=== PATIENT | female | born 1995 | race African-American/Black ===

== ENCOUNTER 2017-01-28 20:52 | Emergency (ER) | payer BC ==
[~2017-01-28] VITALS: Ht 165.1 cm; Wt 59.0 kg
[~2017-01-28 20:52] MED LIST: ACETAMINOPHEN-1 EAC1 PO; FLEXERIL PO; HYDROCODONE-AP1 EAC6; IBUPROFEN 600600 M1 PO; IBUPROFEN 800800 M1 PO; NAPROSYN500 MG PO; TRAMADOL 50 MG50 MG
[2017-01-28 22:21] LABS: URINE BILIRUBIN NEGATIVE (Negative); URINE BLOOD NEGATIVE (Negative); URINE COLOR YELLOW; URINE GLUCOSE-RANDOM* NEGATIVE (Negative); URINE KETONES NEGATIVE (Negative); URINE NITRITE NEGATIVE (Negative); URINE PROTEIN (DIPSTICK) NEGATIVE (Negative); URINE SPECIFIC GRAVITY 1.025 (1.003-1.035); URINE UROBILINOGEN 0.2 E.U./dl (0.2-1.0)
[2017-01-28 22:45] LABS: ABSOLUTE NEUTROPHILS 4.6 thou/uL (1.4-8.2); BASOPHILS 0.5 % (0.0-2.0); EOSINOPHILS 1.5 % (0.0-3.0); LYMPHOCYTES 17.5 % (24.0-44.0); MCH 28.4 pg (26.0-34.0); MCHC 33.5 g/dL (28.0-37.0); MCV 84.9 fL (80.0-100.0); MONOCYTES 8.7 % (1.0-8.0); PLATELET COUNT 267 thou/uL (150-400); POLYS 71.8 % (36.0-66.0); RBC 3.89 mil/uL (4.20-5.00); RDW 14.4 % (10.5-14.5); WBC 6.4 thou/uL (4.0-11.0)
[2017-01-28 22:46] LABS: MANUAL DIFF NO
[2017-01-28 22:51] LABS: ANION GAP 6 mmol/L (7-16); BUN 13 mg/dL (7-18); CALCIUM 9.1 mg/dL (8.5-10.1); CHLORIDE 105 mmol/L (98-107); CO2 27 mmol/L (21-32); CREATININE 0.7 mg/dL (0.6-1.0); GLUCOSE 100 mg/dL (74-106); POTASSIUM 3.5 mmol/L (3.5-5.1); SODIUM 138 mmol/L (136-145)
[2017-01-28 22:56] LABS: ALBUMIN 3.4 g/dL (3.4-5.0); ALKALINE PHOSPHATASE 50 U/L (46-116); DIRECT BILIRUBIN < 0.1 mg/dL (<0.1-0.3); SGOT 13 U/L (15-37); SGPT 15 U/L (30-65); TOTAL BILIRUBIN 0.2 mg/dL (<0.1-1.0); TOTAL PROTEIN 6.9 g/dL (6.4-8.2)
[2017-01-29] MEDS ORDERED: DICLEGIS DR 101 EACH PO (00:38)
[2017-01-29 01:30] VITALS: BP 97/51
== END 2017-01-29 01:31 | disposition home or self-care (01) ==
LOC: ER 20:52
PROVIDERS: Emergency Medicine; Nurse Practitioner Family
DX: O21.9 Vomiting of pregnancy, unspecified (principal); Z3A.01 Less than 8 weeks gestation of pregnancy; Z98.890 Other specified postprocedural states